=== PATIENT | female | born 1955 | race Caucasian/White ===

== ENCOUNTER → 2023-07-31 07:50 | Outpatient (REF) | payer BC, SELFPAY | LOC: HWRAD 07:50 | PROVIDERS: ATTENDING PHYSICIAN Internal Medicine | DX: Z13.820 Encounter for screening for osteoporosis (principal) | CPT/HCPCS: 77080 ==

== ENCOUNTER → 2024-02-08 07:32 | Outpatient (REF) | payer BC, SELFPAY | LOC: HWWDC 07:32 | PROVIDERS: ATTENDING PHYSICIAN Internal Medicine | DX: Z12.31 Encounter for screening mammogram for malignant neoplasm of breast (principal) | CPT/HCPCS: 77063; 77067 ==